=== PATIENT | male | born 1965 | race Caucasian/White ===

== ENCOUNTER 2023-05-06 14:19 | Outpatient (CLI) | payer OTHER, SELFPAY ==
--- NOTE | ~2023-05-06 | MR_ITS ---
EXAMINATION: MRA neck wo con DATE: 05/06/2023 15:39 INDICATION: Bilateral carotid artery stenosis TECHNIQUE: Magnetic resonance angiography (MRA) of the neck was performed without intravenous contras t. Sequences included axial 3D-time of flight T1-weighted FSPGR, axial Inhance 3D velocity arterial. Horizontal and vertical rotating 3D MIP images were created from the 3-D [id number] images. COMPARISON: None. FINDINGS: There is suboptimal signal with significant artifact most prominent at the level of the carotid bulbs where it severely limits evaluation on the Inhance sequences and markedly limits evaluation on the 3 D [id number] sequence. There appears to be a moderate 50-70% stenosis of the distal right common carotid artery immediately proximal to the bifurcation. There also appear to be moderate 50-70% stenosis of the right and left c arotid bulbs relative to normal distal artery lumen diameter (NASCET criteria). IMPRESSION: 1. Moderate to severely limited evaluation due to suboptimal signal and significant artifact at the l evel of the carotid bulbs. 2. Moderate, 50-70% stenosis of the right and left carotid bulbs relative to normal distal artery lum en diameter (NASCET criteria). Could consider correlation with carotid ultrasound to increase the deg ree of confidence. 3. Moderate, 50-70% stenosis of the distal right common carotid artery. Reviewed, dictated and finalized at location A. [employer] IMPRESSION: 1. Moderate to severely limited evaluation due to suboptimal signal and signifi cant artifact at the level of the carotid bulbs. 2. Moderate, 50-70% stenosis of the right and left carotid bulbs relative to no rmal distal artery lumen diameter (NASCET criteria). Could consider correlation with carotid ultrasound to increase the degree of confidence. 3. Moderate, 50-70% stenosis of the distal right common carotid artery.
== END 2023-05-06 14:20 | disposition home or self-care (01) ==
PROVIDERS: Visit Provider Surgery Vascular Surgery
DX: I65.23 Occlusion and stenosis of bilateral carotid arteries (principal)
CPT/HCPCS: 70547